=== PATIENT | male | born 1935 | race Caucasian/White ===

== ENCOUNTER 2018-08-08 07:20 | Inpatient (IN) ==
[2018-08-01 15:30] LABS: Appearance,Urine CLEAR; Bacteria,Urine 0 /hpf (0); Bilirubin,Urine NEG (NEG); Color,Urine YELLOW; Glucose,Urine (UA) NEGATIVE (NEG); Leukocyte Esterase,Urine NEG /uL (NEG); Mucus,Urine FEW /hpf (0); Protein,Urine NEG (NEG); Specific Gravity,Urine 1.013 (1.000-1.035); Urine Blood 0.03 mg/dL (<0.03); Urine Hyaline Cast 2 /lpf (0-2); Urine RBC 11 /hpf (0-1); Urine Squamous Epithelial Cell 0 /hpf (0-4); Urine WBC 1 /hpf (0-4); Urobilinogen,Urine NEG (NEG)
[2018-08-01 15:59] LABS: Basophils # (Auto) 0 K/mcL (0.0-0.3); Basophils % (Auto) 0.4 % (0.0-2.0); Eosinophils # (Auto) 0.2 K/mcL (0.0-0.7); Eosinophils % (Auto) 2.4 % (0.0-7.0); Granulocytes % (Auto) 61.5 % (38.0-78.0); Lymphocytes # (Auto) 1.9 K/mcL (1.5-4.8); Lymphocytes % (Auto) 27.7 % (15.5-49.0); Mean Cell Volume 83.6 fL (80.0-100.0); Mean Corpuscular HGB Conc 32.5 g/dL (31.0-36.0); Mean Corpuscular Hemoglobin 27.2 pg (26.0-34.0); Monocytes # (Auto) 0.5 K/mcL (0.1-0.9); Platelet Count 78 K/mcL (140-440); RBC 4.21 M/mcL (4.50-5.90); Red Cell Distribution Width 20.9 % (11.5-14.5)
[2018-08-01 16:03] LABS: Blood Urea Nitrogen 15 mg/dl (8-23)
[~2018-08-08 07:20] MED LIST: CELECOXIB 200 MG CAPSULE PO SCH; PREGABALIN 75 MG CAPSULE PO SCH; VANCOMYCIN 1,000 MG in 0.9 % SODIUM CHLORIDE 250 ML IV SCH; oxyCODONE 10 MG TAB.ER.12H PO SCH
[2018-08-08] MEDS ORDERED: LIDOCAINE HCL/PF 100 MG/5 ML SYRINGE IV ONE (09:25)
[2018-08-08] MEDS ORDERED: KETAMINE 100 MG/ML ML IV ONE (09:25)
[2018-08-08] MEDS ORDERED: ONDANSETRON 4 MG/2 ML VIAL IV ONE (09:25)
[2018-08-08] MEDS ORDERED: HYDROmorphone 2 MG/ML VIAL IV ONE (09:25)
[2018-08-08] MEDS ORDERED: TRANEXAMIC ACID 1,000 MG/10 ML VIAL IV ONE (09:25)
[2018-08-08] MEDS ORDERED: fentaNYL 250 MCG/5 ML VIAL IV ONE (09:25)
[2018-08-08] MEDS ORDERED: PHENYLEPHRINE 10 MG/ML VIAL IV ONE (09:25)
[2018-08-08] MEDS ORDERED: MIDAZOLAM 2 MG/2 ML VIAL IV ONE (09:25)
[2018-08-08] MEDS ORDERED: GLYCOPYRROLATE 0.2 MG/ML VIAL IV ONE (09:25)
[2018-08-08] MEDS ORDERED: PROPOFOL 200 MG/20 ML VIAL IV ONE (09:25)
[2018-08-08] MEDS ORDERED: DEXAMETHASONE 10 MG/ML VIAL IV ONE (09:25)
[2018-08-08] MEDS ORDERED: HEPARIN 20,000 UNIT/ML VIAL IR ONE (09:30)
[2018-08-08] MEDS ORDERED: METHOCARBAMOL 1,000 MG/10 ML VIAL IV PRN (10:22)
[2018-08-08] MEDS ORDERED: LACTATED RINGERS 250 ML IV PRN (10:22)
[2018-08-08] MEDS ORDERED: BENZOCAINE/MENTHOL 1 LOZENGE PO PRN ×2 (10:22→10:57)
[2018-08-08] MEDS ORDERED: MEPERIDINE 25 MG/ML SYRINGE IV PRN (10:22)
[2018-08-08] MEDS ORDERED: IPRATROPIUM/ALBUTEROL 3 ML AMPUL.NEB NEB PRN (10:22)
[2018-08-08] MEDS ORDERED: ONDANSETRON 4 MG/2 ML VIAL IV PRN ×2 (10:22→10:57)
[2018-08-08] MEDS ORDERED: FLUMAZENIL 0.1 MG/ML ML IV PRN (10:22)
[2018-08-08] MEDS ORDERED: ACETAMINOPHEN 1,000 MG/100 ML BOTTLE IV ONE (10:22)
[2018-08-08] MEDS ORDERED: NALOXONE HCL 0.4 MG/ML VIAL IV PRN (10:22)
[2018-08-08] MEDS ORDERED: LACTATED RINGERS 1,000 ML IV SCH (10:30)
--- NOTE | 2018-08-08 10:56 | Brief Operative Note ---
Date of procedure: 08/08/18 Pre-op diagnosis: Right knee severe OA Post-op diagnosis: same Procedure: Right anterior total hip arthroplasty Grafts/Implants: Yes (Depuy Actis 8 HO stem, +1.5 36 delta head ball) Anesthesia: spinal, GLMA Findings: arthritis Complications: none Surgeon: Lee Quinn Computer Systems Engineer: Kirill John Estimated blood loss (cc): 500 Specimens Removed/Pathology: none sent Condition: stable Disposition: PACU
[2018-08-08] MEDS ORDERED: FLEETS ADULT ENEMA PR PRN (10:57)
[2018-08-08] MEDS ORDERED: HYDROmorphone 2 MG/ML VIAL IV PRN (10:57)
[2018-08-08] MEDS ORDERED: MAGNESIUM HYDROXIDE 30 ML ORAL.SUSP PO PRN (10:57)
[2018-08-08] MEDS ORDERED: KETOROLAC 15 MG/ML VIAL IV PRN (10:57)
[2018-08-08] MEDS ORDERED: BISACODYL 10 MG SUPP.RECT PR PRN (10:57)
[2018-08-08] MEDS ORDERED: POLYETHYLENE GLYCOL 3350 17 GM PACKET PO PRN (10:57)
[2018-08-08] MEDS ORDERED: TRANEXAMIC ACID 1,000 MG/10 ML VIAL IV SCH (10:57)
[2018-08-08] MEDS ORDERED: ceFAZolin 1 GM VIAL IV SCH (11:00)
[2018-08-08] MEDS ORDERED: traMADol 50 MG TABLET PO PRN (11:05)
[2018-08-08] MEDS ORDERED: LORazepam 0.5 MG TABLET PO PRN (11:05)
[2018-08-08] MEDS: fentaNYL 100 MCG/2 ML VIAL IV PRN ×3 (11:30→11:43)
[2018-08-08 11:35] LABS: Estimated Average Glucose(eAG) 166 mg/dL; Hemoglobin A1C 7.4 % HGB (4.0-6.0)
--- NOTE | 2018-08-08 11:38 | Operative Note ---
DATE OF OPERATION: 08/08/2018 PREOPERATIVE DIAGNOSIS: Right hip severe osteoarthritis. POSTOPERATIVE DIAGNOSIS: Right hip severe osteoarthritis. PROCEDURE PERFORMED: Right anterior total hip arthroplasty placing a DePuy Actis size 8 high offset femoral stem; a +1.5, 36 mm delta ceramic head ball; 56 [place] cup with a neutral AltrX liner. SURGEON: Lee Quinn M.D. WINE CONSULTANT: Luciano John PA-C. ANESTHESIA: Spinal plus general. DRAINS: None. SPECIMENS: Femoral head which was discarded. BLOOD LOSS: 500 mL. COMPLICATIONS: None. POSTOPERATIVE CONDITION: Stable. INDICATIONS FOR SURGERY: This is an 83-year-old male who has had longstanding progressive worsening right hip pain. Radiographs showed severe bntl-sy-iuib osteoarthritis. FINDINGS AT SURGERY: As above. Post implantation showed good component position with relatively close leg length and offset advent. PROCEDURE IN DETAIL: The patient had been seen preoperatively. Informed consent had been obtained after discussion of risks and benefits of surgery. Risks including, but not limited to, bleeding, possibly requiring transfusion, this increased given his low platelet count; infection, possibly requiring implant removal and prolonged IV antibiotics; injury to nerves, blood vessels, and other surrounding structures; anesthetic risks; incomplete or no resolution of symptoms; leg length discrepancy; dislocation; fracture; DVT and pulmonary embolus risks; and the possibility of needing further revision surgery. He understood these risks and wished to proceed. Correct operative site was marked in preoperative holding and patient received spinal anesthesia. He was then taken to the operating room and LMA general given. He was carefully positioned on the fracture table, and the right hip and groin were carefully prepped and draped in normal sterile fashion, and a time-out was performed verifying patient name, operative site, and plan. Ioban was used to cover all skin surfaces and then a standard anterior approach incision was made with a scalpel through skin and subcutaneous tissue. Hemostasis was obtained with Bovie cautery. Careful blunt dissection was taken down onto the tensor fascia and then this was undermined circumferentially. A ring retractor was placed and then tensor fascia was incised in line with the muscle fibers. Careful blunt dissection was taken medial to the muscle belly. Circumflex vessels were coagulated and cut and anterior capsulectomy performed, as well as capsule releases out to the trochanters. Corkscrew was placed in the femoral head. Osteotome was used under fluoro to identify our neck cut and then we used the oscillating saw to make our neck cut, and the head was removed. Acetabulum was exposed and labrum was removed circumferentially, as well as soft tissue from the floor. We started reaming under fluoroscopy, directly medializing to the tear drop and then increasing reamer size and angle. We went ahead and then reamed up sequentially to a 55 reamer before we had rim ream. We opened a 56 three-hole cup. The stem was irrigated with Irrisept, after a minute pulse lavaged with saline, and then we impacted using the [id number] at approximately 40 degrees of inclination and 25 degrees of anteversion. We did get good press fit. A center hole cover was placed. Anterior osteophyte was removed with a curved osteotome and then a neutral AltrX liner was impacted. We then removed traction from the leg and externally rotated. We released capsule around the posterior and medial neck and then the leg was extended and adducted. We exposed the proximal femur and then box osteotome and awl were used to enter the femur and then a rongeur and rasp to lateralize. We sequentially broached up to a size 6 with the [id number]. We went ahead and then trialed with a high offset neck and a 1.5 head ball. Hip was reduced. AP pelvis was taken to verify neutral rotation. AP of the nonoperative and operative hips were overlaid and then our leg lengths appeared pretty similar, maybe slightly lengthened. The stem appeared undersized. We dislocated and re-exposed and broached up to a size 8. We opened the 8 high offset stem. The canal was irrigated with Irrisept, after a minute pulse lavaged with saline. The stem was impacted and seated the collar on the neck cut. We then impacted the head ball after carefully cleaning and drying the trunnion. After the head ball was impacted, we reduced the hip and final fluoro images were taken. We irrigated the joint with Irrisept, after a minute copiously pulse lavaged, and then #1 Vicryl stitches were used running to close the tensor fascia. Ring retractor was removed. Irrisept was irrigated again, after a minute pulse lavaged again, and then fat was tacked to fascia with Vicryl and then 2-0 Monocryl for subcutaneous and polo for skin. Xeroform and sterile dressing were applied. The patient was awakened, extubated, and transferred to recovery in stable condition. BJB:alli Job ID: [id number] Doc ID: [id number] Lee Quinn MD
--- NOTE | 2018-08-08 13:36 | XRay Report ---
CLINICAL INFORMATION: Post-op Total Hip COMPARISON: Preoperative films 07/02/2018 FINDINGS: Right total hip prostheses is anatomically aligned. Left hip and both SI joints show minimal degeneration which is stable. Radiation seeds seen in the prostate region. Soft tissue swelling over the surgical site as expected IMPRESSION: Right total hip prostheses - anatomically aligned Interpreted and Authenticated by: Marciano Bal 08/08/18
[2018-08-08] MEDS: 0.9 % SODIUM CHLORIDE 10 ML SYRINGE IV SCH ×2 (13:55→23:57)
--- NOTE | 2018-08-08 15:47 | XRay Report ---
CLINICAL INFORMATION: RIGHT ANTERIOR TOTAL HIP COMPARISON: None. FINDINGS: Digital images from the OR are submitted. Final images show right total hip prostheses in anatomic alignment. No osseous abnormalities. Radiation seeds seen in the region of the prostate IMPRESSION: Right total hip prostheses in anatomic alignment Interpreted and Authenticated by: Marciano Bal 08/08/18
[2018-08-08] MEDS ORDERED: DEXTROSE 31 GM ORAL.SUSP PO PRN (16:45)
[2018-08-08] MEDS ORDERED: DEXTROSE 50% 50 ML VIAL IV PRN (16:45)
[2018-08-08] MEDS: oxyCODONE HCL 5 MG TABLET PO PRN (16:59)
[2018-08-08] MEDS: INSULIN LISPRO 1 UNIT/0.01 ML UNIT SQ SCH ×2 (17:02→22:47)
[2018-08-08] MEDS: 0.9 % SODIUM CHLORIDE 1,000 ML IV SCH ×2 (17:04→23:55)
[2018-08-08] MEDS ORDERED: SENNOSIDES 1 TABLET PO SCH (21:00)
[2018-08-08] MEDS ORDERED: VANCOMYCIN 1,000 MG in 0.9 % SODIUM CHLORIDE 250 ML IV ONE (21:00)
[2018-08-08] MEDS ORDERED: SIMVASTATIN 40 MG TABLET PO SCH (21:00)
[2018-08-08] MEDS: DOCUSATE SODIUM 100 MG CAPSULE PO SCH (22:36)
[2018-08-08] MEDS: ASPIRIN 325 MG ENTERIC COATED TABLET PO SCH (22:36)
[2018-08-09] MEDS: oxyCODONE HCL 5 MG TABLET PO PRN (01:26)
[2018-08-09] MEDS: 0.9 % SODIUM CHLORIDE 1,000 ML IV SCH ×2 (02:04→11:33)
[2018-08-09] MEDS: 0.9 % SODIUM CHLORIDE 10 ML SYRINGE IV SCH (06:41)
[2018-08-09] MEDS ORDERED: OMEPRAZOLE 20 MG CAPSULE PO SCH (07:30)
--- NOTE | 2018-08-09 08:01 | Discharge Summary ---
Providers - Providers Patient information: Note initiated : 08/09/18 at 7:59 am Service Date, if different from initiated Date: [] Patient: Joe Vargas 83 y/o M admitted on 08/08/18 for Right Total Hip Arthroplasty Anterior. Chief Complaint: [] Discharge date: 08/09/18 Hospitalization Hospital course: Pt was admitted for a R ALMA. Pt underwent the procedure on the day of admission. Pt spent one night on the floor prior to discharge for IV pain meds, IV abx, and PT. Pt will attend out-pt PT and f/u at [facility] in 2 weeks. Discharge diagnosis: R Hip OA Exam - Exam Clean and dry: Yes Weight bearing status: as tolerated Ortho Discharge - ALMA - Patient Instructions Diet: Regular Diet Activity: activity as tolerated Total Hip Protocol: Follow activity instructions as provided by Physical Therapy. Dressing Care: May shower in 2 days Patient Education: Minimally Invasive Total Hip Replacement (DC) Additional Instructions: Discharge Instructions: Do the exercises at home that physical therapy gave you throughout the day. Weight bearing as tolerated. Wear comfortable clothing for physical therapy. Take your prescription, photo ID, insurance cards, and current medication list with you to your first physical therapy appointment. Take your prescription to filler picker any medication or equipment (such as walker, crutches, toilet riser or C.P.M.) You have the Aquacel Ag dressing, leave in place for 7 days then remove. If dressing becomes soiled (turns black), remove and use gauze 4x4 dressing and silvasorb ointment and change daily. Keep incision clean and dry. You can get the Silvasorb gel and 4x4 dressings at [facility] if you need them. You may start showering on post op day #2. To avoid constipation while taking any narcotic pain medication, take an over the counter stool softener/laxative. Use ice packs as directed, on for 20 minutes at a time throughout the day. This and elevation will help with pain and swelling. Call your physician for fevers above 100.5 or pain not controlled by medication. Your prescriptions are with your discharge information. Some medications were electronically transmitted to your pharmacy of choice. Take Aspirin twice daily, for 30 days, as prescribed to prevent blood clots ( see medication list). - Follow Up Plan Follow Up Appointments: Lee Quinn MD [Physician] - 12/13/18 10:00 am Disposition: Home, Self-Care Prognosis: Good Rehab Potential: Good Overall status at discharge: patient is progressing back to baseline - Orders For Discharge Prescriptions: Aspirin [Ecotrin] 325 mg PO BID #30 tab.ec Hydrocodone/APAP 7.5/325Mg [[place] 7.5-325Mg] 1 - 2 tab PO Q4HP PRN #90 tab PRN Reason: Pain Level 3-6 Pending Studies Resuscitation Status Full Code Diet Consistent Carbohydrate Diet Start MonAug 08 1643 Aspirin (Ecotrin) 325 mg PO BID [facility] Last Admin: 08/08/18 22:36 Dose: 325 mg Diagnostic Test (Pha) (Accu-Chek) [address] [facility] Last Admin: 08/08/18 22:37 Dose: 1 each Admin: 08/08/18 16:51 Dose: 1 each Docusate Sodium (Colace) 100 mg PO BID [facility] Last Admin: 08/08/18 22:36 Dose: 100 mg Sodium Chloride (Sodium Chloride 0.9%) 1,000 mls @ 125 mls/hr IV .Q8H [facility] Last Admin: 08/09/18 02:04 Dose: 125 mls/hr Infusion: 08/09/18 01:50 Dose: 0 mls/hr Admin: 08/08/18 23:55 Dose: Admin: 08/08/18 17:04 Dose: 125 mls/hr Insulin Human Lispro (Humalog) 0 unit [facility]; Protocol Last Admin: 08/08/18 22:47 Dose: 4 units Admin: 08/08/18 17:02 Dose: 4 units Lorazepam (Ativan) 0.5 - 1 mg PO Q6HP PRN PRN Reason: Anxiety Last Admin: 08/09/18 01:30 Dose: 0.5 mg Oxycodone HCl (Roxicodone) 5 - 10 mg PO Q6HP PRN PRN Reason: Pain Last Admin: 08/09/18 01:26 Dose: 5 mg Admin: 08/08/18 16:59 Dose: 5 mg Senna (Senokot) 2 tab PO HS [facility] Last Admin: 08/08/18 22:36 Dose: 2 tab Simvastatin (Zocor) 80 mg PO [facility] Last Admin: 08/08/18 22:35 Dose: 80 mg Sodium Chloride (Saline Flush) 10 ml IV Q8 [facility] Last Admin: 08/09/18 06:41 Dose: Not Given Admin: 08/08/18 23:57 Dose: Admin: 08/08/18 13:55 Dose: Not Given Shift Summary 08/09/18 05:58 Shift Summary by Deangelo Solis Right hip arthroplasty POD1; able to ambulate to BR with FWW; pain much improved compared to pre-surgery, good mobility; ACHS for DM2 which is new for pt; continue education; got once IV Vanco hs. Doing well. Initialized on 08/09/18 05:58 - END OF NOTE
[2018-08-09] MEDS: INSULIN LISPRO 1 UNIT/0.01 ML UNIT SQ SCH ×2 (08:04→11:33)
[2018-08-09] MEDS: HYDROCODONE/APAP 7.5/325MG TABLET PO PRN ×2 (08:05→13:20)
[2018-08-09] MEDS: DOCUSATE SODIUM 100 MG CAPSULE PO SCH (08:05)
[2018-08-09] MEDS: ASPIRIN 325 MG ENTERIC COATED TABLET PO SCH (08:05)
[2018-08-09] MEDS ORDERED: FUROSEMIDE 80 MG TABLET PO SCH (09:00)
[2018-08-09] MEDS ORDERED: SPIRONOLACTONE 25 MG TABLET PO SCH (09:00)
[2018-08-09] MEDS ORDERED: CYANOCOBALAMIN (VITAMIN B-12) 500 MCG TABLET PO SCH (09:00)
[2018-08-09] MEDS ORDERED: MULTIVIT,THER IRON,CA,FA & MIN 1 TABLET PO SCH (09:00)
== END 2018-08-09 14:20 | disposition home or self-care (01) | DRG 470 ==
LOC: MEDSUR 07:20
PROVIDERS: ADMIT Orthopaedic Surgery; ATTEND Orthopaedic Surgery
CPT/HCPCS: 73502; 90686; 97161; C1776; J0131; J1100; J1170; J1644; J1817; J2001; J2250; J2370; J2405; J2800; J3010; J3370; J7030; J7050; J7120

== ENCOUNTER 2024-04-15 00:55 | Inpatient (IN) ==
[2024-04-15] MEDS: ACETAMINOPHEN 1,000 MG/100 ML BAG IV ONE (01:45)
[2024-04-15] MEDS: 0.9 % SODIUM CHLORIDE 1,000 ML IV ONE ×3 (01:45→03:16)
[2024-04-15 02:13] LABS: ALT/SGPT 8 U/L (<40); AST/SGOT 28 U/L (<40); Albumin 3.7 gm/dL (3.2-5.2); Albumin/Globulin Ratio 1.9 (1.0-2.3); Alkaline Phosphatase 68 U/L (39-117); Bilirubin,Total 2.3 mg/dL (0.1-1.0); Blood Urea Nitrogen 27 mg/dL (8-23); Carbon Dioxide 21 mmol/L (22-30); Chloride 100 mmol/L (96-108); Glomerular Filtration Rate 31; Glucose 263 mg/dL (70-105); Potassium 3.7 mmol/L (3.3-5.1); Sodium 136 mmol/L (133-145)
[2024-04-15 02:47] LABS: Appearance,Urine Cloudy (Clear); Bacteria,Urine FEW /hpf (0); Bilirubin,Urine Negative (Negative); Color,Urine Amber; Culture Indicated,Urine Yes; Glucose,Urine (UA) Negative (Negative); Ketones,Urine 15 mg/dL (Negative); Leukocyte Esterase,Urine Trace /uL (Negative); Nitrate,Urine Positive (Negative); PH,Urine 8.5 (5.0-9.0); Protein,Urine >=300 mg/dL (Negative); Urine Blood Large ery/mcL (Negative); Urine RBC > 182 /hpf (0-1); Urine Squamous Epithelial Cell 0 /hpf (0-4); Urine WBC 10 /hpf (0-4); Urobilinogen,Urine Normal
[2024-04-15 02:48] LABS: Basophils # (Auto) 0.01 K/mcL (0.00-0.30); Basophils % (Auto) 0.1 % (0.0-2.0); Eosinophils # (Auto) 0 K/mcL (0.00-0.70); Eosinophils % (Auto) 0 % (0.0-7.0); Hematocrit 33.5 % (40.1-51.0); Hemoglobin 10.2 g/dL (13.7-17.5); Mean Cell Volume 89.6 fL (80.0-100.0); Mean Corpuscular HGB Conc 30.4 g/dL (31.0-36.0); Monocytes # (Auto) 0.17 K/mcL (0.10-0.90); Monocytes % (Auto) 2.3 % (1.0-12.0); Neutrophils % (Auto) 54.3 % (38.0-78.0); Platelet Count 31 K/mcL (140-440); RBC 3.74 M/mcL (4.63-6.08); Red Cell Distribution Width 16.7 % (11.5-14.5); WBC 7.4 K/mcL (4.5-11.0)
[2024-04-15] MEDS: VANCOMYCIN 2,000 MG in 0.9 % SODIUM CHLORIDE 500 ML IV ONE (06:05)
[2024-04-15] MEDS: 0.9 % SODIUM CHLORIDE 250 ML IV SCH (08:13)
[2024-04-15] MEDS: NOREPINEPHRINE 250 ML IV SCH (08:13)
[2024-04-15] MEDS: LEVOFLOXACIN 750 MG/150 ML BAG IV ONE ×2 (08:40→08:56)
[2024-04-15 09:44] LABS: ALT/SGPT 26 U/L (<40); AST/SGOT 75 U/L (<40); Albumin 3.6 gm/dL (3.2-5.2); Albumin/Globulin Ratio 2.1 (1.0-2.3); Alkaline Phosphatase 69 U/L (39-117); Blood Urea Nitrogen 30 mg/dL (8-23); Calcium 8.5 mg/dL (8.6-10.4); Carbon Dioxide 17 mmol/L (22-30); Chloride 103 mmol/L (96-108); Globulin 1.7 gm/dL (2.2-3.7); Glomerular Filtration Rate 27; Glucose 243 mg/dL (70-105); Potassium 3.8 mmol/L (3.3-5.1); Sodium 136 mmol/L (133-145)
[2024-04-15] MEDS ORDERED: SENNOSIDES 1 TABLET PO PRN (10:37)
[2024-04-15] MEDS ORDERED: IPRATROPIUM/ALBUTEROL 3 ML AMPUL.NEB NEB PRN (10:37)
[2024-04-15] MEDS ORDERED: VANCOMYCIN PER PHARMACY IV SCH (10:37)
[2024-04-15] MEDS ORDERED: ONDANSETRON 4 MG/2 ML VIAL IV PRN (10:37)
[2024-04-15] MEDS: 0.9 % SODIUM CHLORIDE 1,000 ML IV SCH (10:40)
[2024-04-15] MEDS ORDERED: 0.9 % SODIUM CHLORIDE 10 ML SYRINGE IV PRN (10:43)
[2024-04-15] MEDS ORDERED: LIDOCAINE 1% 10 ML VIAL SQ ONE (11:31)
[2024-04-15] MEDS: LORazepam 2 MG/ML VIAL IV ONE (11:33)
[2024-04-15] MEDS: LORazepam 2 MG/ML VIAL ONE (11:34)
[2024-04-15] MEDS ORDERED: diphenhydrAMINE 25 MG CAPSULE PO PRN (13:17)
[2024-04-15] MEDS ORDERED: NITROGLYCERIN 0.4 MG TAB.SUBL SL PRN (13:17)
[2024-04-15] MEDS ORDERED: oxyCODONE IR 5 MG TABLET PO PRN (13:19)
[2024-04-15] MEDS: HYDROmorphone 0.5 MG/0.5 ML SYRINGE IV PRN (13:26)
[2024-04-15] MEDS: 0.9 % SODIUM CHLORIDE 10 ML SYRINGE IV SCH (13:26)
[2024-04-15] MEDS ORDERED: DEXTROSE 50% 50 ML VIAL IV PRN (14:16)
[2024-04-15] MEDS ORDERED: DEXTROSE 31 GM ORAL.SUSP PO PRN (14:16)
[2024-04-15] MEDS: INSULIN LISPRO 1 UNIT/0.01 ML UNIT SQ SCH (16:47)
[2024-04-15] MEDS ORDERED: ACETAMINOPHEN 325 MG TABLET PO PRN (20:36)
[2024-04-15] MEDS: ACETAMINOPHEN 650 MG/65 ML BAG IV PRN (20:50)
[2024-04-16] MEDS: traZODone HCL 50 MG TABLET PO SCH (00:15)
[2024-04-16] MEDS: 0.9 % SODIUM CHLORIDE 250 ML IV SCH (06:01)
[2024-04-16] MEDS: VASOPRESSIN 20 UNIT in DEXTROSE 5% IN WATER 99 ML IV SCH (06:02)
[2024-04-16 06:21] LABS: ALT/SGPT 39 U/L (<40); AST/SGOT 97 U/L (<40); Albumin 3.3 gm/dL (3.2-5.2); Albumin/Globulin Ratio 1.6 (1.0-2.3); Alkaline Phosphatase 65 U/L (39-117); Bilirubin,Direct 1.6 mg/dL (<0.3); Bilirubin,Total 2.7 mg/dL (0.1-1.0); Blood Urea Nitrogen 46 mg/dL (8-23); Calcium 7.8 mg/dL (8.6-10.4); Carbon Dioxide 16 mmol/L (22-30); Chloride 104 mmol/L (96-108); Globulin 2.1 gm/dL (2.2-3.7); Glomerular Filtration Rate 18; Glucose 122 mg/dL (70-105); Lactate Dehydrogenase 261 U/L (135-225); Phosphorous 6.6 mg/dL (2.5-4.5); Potassium 5.7 mmol/L (3.3-5.1); Sodium 137 mmol/L (133-145); Triglycerides 151 mg/dL (<150); Uric Acid 7.1 mg/dL (2.5-8.0)
[2024-04-16] MEDS ORDERED: VASOPRESSIN 20 UNIT in DEXTROSE 5% IN WATER 99 ML IV PRN (08:16)
[2024-04-16 08:49] LABS: Estimated Average Glucose(eAG) 206 mg/dL; Hemoglobin A1C 8.8 % Hgb (4.0-6.0)
[2024-04-16] MEDS: FUROSEMIDE 20 MG/2 ML VIAL IV ONE (08:55)
[2024-04-16] MEDS ORDERED: VANCOMYCIN 1,250 MG in 0.9 % SODIUM CHLORIDE 500 ML IV SCH (09:00)
[2024-04-16 09:01] LABS: Basophils # (Auto) 0.15 K/mcL (0.00-0.30); Basophils % (Auto) 0.4 % (0.0-2.0); Eosinophils # (Auto) 0.08 K/mcL (0.00-0.70); Eosinophils % (Auto) 0.2 % (0.0-7.0); Hematocrit 41.3 % (40.1-51.0); Hemoglobin 11.9 g/dL (13.7-17.5); Lymphocytes % (Auto) 54.9 % (15.5-49.0); Mean Cell Volume 95.8 fL (80.0-100.0); Mean Corpuscular HGB Conc 28.8 g/dL (31.0-36.0); Monocytes # (Auto) 0.51 K/mcL (0.10-0.90); Monocytes % (Auto) 1.4 % (1.0-12.0); Neutrophils % (Auto) 39.1 % (38.0-78.0); Platelet Count 31 K/mcL (140-440); RBC 4.31 M/mcL (4.63-6.08); Red Cell Distribution Width 17.9 % (11.5-14.5); WBC 37.2 K/mcL (4.5-11.0)
[2024-04-16] MEDS: OMEPRAZOLE 20 MG CAPSULE PO SCH (09:07)
[2024-04-16] MEDS: FISH OIL 1,000 MG CAPSULE PO SCH (09:07)
[2024-04-16] MEDS: MIRTAZAPINE 15 MG TABLET PO SCH (09:07)
[2024-04-16] MEDS: VITAMIN B COMPLEX 1 CAPSULE PO SCH (09:07)
[2024-04-16] MEDS: 0.9 % SODIUM CHLORIDE 10 ML SYRINGE IV SCH (09:08)
[2024-04-16] MEDS: MAGNESIUM SULFATE 8.12 MEQ/2 ML VIAL IV ONE (09:24)
[2024-04-16] MEDS: CALCIUM GLUCONATE 9.3 MEQ in DEXTROSE 5% IN WATER 50 ML IV ONE (09:28)
[2024-04-16] MEDS: MAGNESIUM SULFATE 1 GM/100 ML BAG IV ONE (09:29)
[2024-04-16] MEDS: 0.9 % SODIUM CHLORIDE 1,000 ML IV SCH (10:03)
[2024-04-16] MEDS: DEXTROSE 5% IN WATER 1,000 ML IV SCH (11:05)
[2024-04-16] MEDS: SEVELAMER 800 MG TABLET PO SCH (11:55)
[2024-04-16] MEDS: INSULIN LISPRO 1 UNIT/0.01 ML UNIT SQ SCH (12:07)
[2024-04-16 13:20] LABS: ALT/SGPT 39 U/L (<40); AST/SGOT 102 U/L (<40); Albumin 3.2 gm/dL (3.2-5.2); Albumin/Globulin Ratio 1.7 (1.0-2.3); Alkaline Phosphatase 63 U/L (39-117); Bilirubin,Total 2.4 mg/dL (0.1-1.0); Blood Urea Nitrogen 50 mg/dL (8-23); Calcium 7.9 mg/dL (8.6-10.4); Carbon Dioxide 13 mmol/L (22-30); Chloride 105 mmol/L (96-108); Globulin 1.9 gm/dL (2.2-3.7); Glomerular Filtration Rate 17; Glucose 147 mg/dL (70-105); Potassium 6.7 mmol/L (3.3-5.1); Sodium 136 mmol/L (133-145)
[2024-04-16] MEDS ORDERED: SODIUM BICARBONATE VIAL 100 MEQ in DEXTROSE 5% IN WATER 900 ML IV SCH (14:15)
[2024-04-16] MEDS: SODIUM POLYSTYRENE SULFONATE 15 GM/60 ML SUSPENSION PR ONE (14:23)
[2024-04-16] MEDS: SODIUM BICARBONATE VIAL 150 MEQ in WATER FOR INJECTION,STERILE 850 ML IV SCH (14:44)
[2024-04-16] MEDS: DEXTROSE 5%-NS 1,000 ML IV SCH ×2 (15:55→16:55)
[2024-04-16] MEDS: PANTOPRAZOLE 40 MG VIAL IV SCH (16:56)
[2024-04-17] MEDS ORDERED: LEVOFLOXACIN 750 MG/150 ML BAG IV SCH (09:00)
== END 2024-04-16 16:45 | disposition short-term general hospital (02) | DRG 871 ==
LOC: ED 00:55 → ICU 09:43
PROVIDERS: ADMIT Student in an Organized Health Care Education/Training Program; ATTEND Internal Medicine